=== PATIENT | male | born 1965 | race Caucasian/White ===

== ENCOUNTER 2022-12-28 02:30 | Emergency (ER) | payer OTHER ==
[~2022-12-28] VITALS: Ht 180.3 cm; Wt 92.0 kg
[2022-12-28 02:34] VITALS: TEMP 98.5
[2022-12-28] MEDS ORDERED: ONDANSETRON HCL 4MG/2ML INJ IV STA (03:11)
[2022-12-28] MEDS ORDERED: MORPHINE SULFATE 4 MG/ML CPJ (NOT FOR IM USE) IV STA (03:11)
[2022-12-28] MEDS ORDERED: MIDAZOLAM HCL 2 MG/2 ML VIAL IV ONE ×2 (03:15→06:30)
[2022-12-28] MEDS ORDERED: SODIUM CHLORIDE 0.9% 1,000 ML IV ONE (03:15)
[2022-12-28] MEDS ORDERED: TETANUS, DIPHTHERIA, PERTUSSIS VAC/PF 0.5ML (>10YR OLD) IM ONE (03:15)
[2022-12-28] MEDS ORDERED: BACITRACIN ZINC OINT UDPKT TOP ONE (03:15)
[2022-12-28 03:57] LABS: CHLORIDE 111 mEq/L (98-107); INDEX HEMOLYSI 1 (1-3); INDEX ICTERIC 1 (1-4); INDEX LIPEMIC 1 (1-3); POTASSIUM 3.7 mEq/L (3.5-5.1); SODIUM 143 mEq/L (136-145)
[2022-12-28 04:15] LABS: ALANINE AMINOTRANSFERASE 38 IU/L (13-61); ALBUMIN 4.1 g/dL (3.4-5.0); ASPARTATE AMINOTRANSFERASE 39 IU/L (15-37); BILIRUBIN TOTAL 0.6 mg/dL (0.1-1.0); CALCIUM 8.1 mg/dL (8.5-10.1); CARBON DIOXIDE 22 mEq/L (21-32); CREATININE 0.9 mg/dL (0.6-1.3); GLUCOSE 118 mg/dL (70-105); PROTEIN TOTAL 7.9 g/dL (6.0-8.3); TROPONIN I HIGH SENSITIVITY 4 ng/L (<78); UREA NITROGEN BLOOD 15 mg/dL (7-21)
[2022-12-28 06:20] LABS: BASOPHILS % 0.3 % (0.0-2.0); HEMATOCRIT. 39.7 % (42.0-52.0); HEMOGLOBIN. 13.4 g/dL (14.0-18.0); LYMPHOCYTES % 23.8 % (20.0-50.0); MEAN CORPUSCULAR HEMOGLOBIN 30.2 pg (28.0-32.0); MEAN CORPUSCULAR HGB CONC 33.8 g/dL (31.0-37.0); MEAN CORPUSCULAR VOLUME 89.5 fL (80.0-94.0); MEAN PLATELET VOLUME 7.5 fl (7.4-10.4); MONOCYTES % 9.2 % (2.0-8.0); NEUTROPHILS % 66.7 % (40.0-76.0); PLATELET 388 x1000/uL (130-400); RED BLOOD CELL COUNT 4.43 mill/uL (4.7-6.1); RED CELL DISTRIBUTION WIDTH 15.4 % (11.6-14.6); WHITE BLOOD COUNT 12.5 x1000/uL (4.5-11.0)
[2022-12-28] MEDS ORDERED: IOHEXOL-300 100 ML BOTTLE ONE (07:01)
[2022-12-28 07:09] VITALS: BP 140/88; PULSE 92; RESP 18; O2SAT 96
[2022-12-28] MEDS ORDERED: IBUP-2028 MT (07:30)
== END 2022-12-28 08:37 | disposition home or self-care (01) ==
LOC: ER 02:30
DX: F10.129 Alcohol abuse with intoxication, unspecified (principal); R51.9 Headache, unspecified; I49.9 Cardiac arrhythmia, unspecified; Y90.8 Blood alcohol level of 240 mg/100 ml or more
CPT/HCPCS: 80053; 80320; 85025; 86850; 86900; 86901; 84484; 36415; 71045; 70450; 70486; 72125; 74177; 90715; 93005; 90471; 96361; 96374; 96375; 96376; 99291; Q9967; J2250; J2405; J2270; J7030; G0480